=== PATIENT | male | born 1950 | race Caucasian/White ===

== ENCOUNTER 2022-05-15 10:51 | Emergency (ER) | payer OTHER ==
[~2022-05-15] VITALS: Ht 175.3 cm; Wt 83.9 kg
[~2022-05-15 10:51] MED LIST: ALBU90OI INH; ATEN25 PO; ATOR40TA PO; Aspirin EC81 MG PO; Fish Oil Conc1000 MG PO; MELA3 PO; POTA10T PO; Prozac20 MG PO; Sleep Aid25 M1 PO; TRAZ50 PO; ZESTRIL40 M1 PO
[2022-05-15] MEDS ORDERED: HYDR1TAB94 PO (11:07)
[2022-05-15] MEDS ORDERED: ANECREAM515 GM TOP (11:10)
== END 2022-05-15 11:06 | disposition home or self-care (01) ==
LOC: ER 10:51
DX: M25.511 Pain in right shoulder (principal); G89.29 Other chronic pain; Z79.82 Long term (current) use of aspirin; Z79.899 Other long term (current) drug therapy; Z87.891 Personal history of nicotine dependence
CPT/HCPCS: 99283

== ENCOUNTER 2022-08-12 06:18 | Day surgery (SDC) | payer OTHER ==
[~2022-08-12] VITALS: Ht 175.3 cm; Wt 75.7 kg
[~2022-08-12 06:18] MED LIST changes: +ANECREAM515 GM TOP; +HYDR1TAB94 PO
[2022-08-12] MEDS ORDERED: FENO145 (06:50)
--- NOTE | 2022-08-12 07:29 | NUR ---
08/12/22 0729 Berenice Yu TIME OUT AND SITE CHECK DONE WITH DR RAMIREZ FOR [facility]
--- NOTE | 2022-08-12 08:12 | NUR ---
08/12/22 0812 Naty Hutchins 1MG OF EPI (1MG/ML) ADDED TO THE FIRST BAG OF LR FOR IRRIGATION AT THE [facility] PER ORDER. 0.05MG OF EPI DILUTED WITH 10ML OF NORMAL SALINE VERIFIED BY 2 RN'S TO MAKE EPI 1:200,000 FOR INJECTION AT [facility] BY DR BROWNE.
--- NOTE | 2022-08-12 09:39 | NUR ---
08/12/22 0939 TETE YARRBOUGH PT VOMITING. WILL GIVE REGLAN ORDERED BY DR. RAMIREZ. DR. RAMIREZ WAS CALLED BACK INTO PACU TO ASSIST WITH PT ANXITY, TRYING TO PULL OFF O2 MASK EARLIER. HE GAVE PT MED TO REVERSE MUSCLE SPASMS.
[2022-08-12 09:57] VITALS: BP 120/79
--- NOTE | 2022-08-12 09:58 | NUR ---
08/12/22 0957 TETE YARBROUGH ASSISTING WITH CARE
== END 2022-08-12 10:55 | disposition home or self-care (01) ==
LOC: ORSCSDS 06:18
PROVIDERS: Orthopaedic Surgery
PROC: 0LM14ZZ Reattachment of Right Shoulder Tendon, Percutaneous Endoscopic Approach (ICD-10-PCS; principal; 2022-08-12 07:30)
PROC: 0RNJ4ZZ Release Right Shoulder Joint, Percutaneous Endoscopic Approach (ICD-10-PCS; principal; 2022-08-12 07:30)
DX: M75.121 Complete rotator cuff tear or rupture of right shoulder, not specified as traumatic (principal); I10 Essential (primary) hypertension; I25.10 Atherosclerotic heart disease of native coronary artery without angina pectoris; F17.210 Nicotine dependence, cigarettes, uncomplicated; Z79.899 Other long term (current) drug therapy; Z79.82 Long term (current) use of aspirin; E78.00 Pure hypercholesterolemia, unspecified
CPT/HCPCS: C1713; J0171; J0690; J1100; J1885; J2250; J2405; J2704; J2710; J2765; J3010; J7120

== ENCOUNTER 2023-01-23 11:13 | Emergency (ER) | payer OTHER ==
[~2023-01-23] VITALS: Ht 177.8 cm; Wt 72.6 kg
[~2023-01-23 11:13] MED LIST changes: +CENTRUM SILVER1 EAC2 PO; +CLOP75 PO; +FENO145; +METO25 PO
[2023-01-23 13:21] VITALS: BP 139/83
== END 2023-01-23 13:20 | disposition home or self-care (01) ==
LOC: ER 11:13
DX: R51.9 Headache, unspecified (principal); I25.10 Atherosclerotic heart disease of native coronary artery without angina pectoris; I25.2 Old myocardial infarction; Z79.899 Other long term (current) drug therapy; Z79.82 Long term (current) use of aspirin
CPT/HCPCS: 70450

== ENCOUNTER → 2023-06-03 | Outpatient (CLI) | payer OTHER ==
[2023-06-03 09:14] LABS: Source, Urine Clean Catch
[2023-06-03 12:49] LABS: Appearance, Urine Clear (Clear); Bilirubin, Urine Neg (Neg); Blood, Urine 1+ (Neg); Color, Urine Yellow (P-Yellow); Glucose Qualitative, Urine Neg (Neg); Ketones, Urine Neg (Neg); Leukocyte Esterase, Urine 2+ (Neg); Nitrite, Urine Pos (Neg); Protein, Urine 4+ (Neg); Urobilinogen, Urine NORM (Normal)
[2023-06-03 13:01] LABS: Bacteria Many /hpf; Squamous Epithelial Cells Few /hpf (Few); White Blood Cells, Urine 50-100 /hpf (0-5)
== END | disposition home or self-care (01) ==
LOC: LAB SHORT 09:12
PROVIDERS: Student in an Organized Health Care Education/Training Program
DX: N18.32 Chronic kidney disease, stage 3b (principal)
CPT/HCPCS: 81001

== ENCOUNTER → 2023-06-06 | Outpatient (CLI) | payer OTHER ==
[2023-06-06 14:48] LABS: Source, Urine Voided
[2023-06-06 15:37] LABS: Appearance, Urine Clear (Clear); Bilirubin, Urine Neg (Neg); Blood, Urine 1+ (Neg); Color, Urine Yellow (P-Yellow); Glucose Qualitative, Urine Neg (Neg); Ketones, Urine Neg (Neg); Leukocyte Esterase, Urine Neg (Neg); Nitrite, Urine Neg (Neg); Protein, Urine 4+ (Neg); Urobilinogen, Urine NORM (Normal)
[2023-06-06 16:10] LABS: Protein, Urine Random 688.3 mg/dL (0.0-11.9); Protein/Creat Ratio, Ur Random 5.2
[2023-06-06 17:19] LABS: Bacteria Many /hpf; Squamous Epithelial Cells Rare /hpf (Few)
== END | disposition home or self-care (01) ==
LOC: LAB 14:17 → LAB SHORT 14:17
PROVIDERS: Hospitalist
DX: I12.9 Hypertensive chronic kidney disease with stage 1 through stage 4 chronic kidney disease, or unspecified chronic kidney disease (principal); N18.32 Chronic kidney disease, stage 3b; R80.9 Proteinuria, unspecified
CPT/HCPCS: 81001; 82570; 84156; 87077; 87086; 87186

== ENCOUNTER 2023-08-11 12:05 | Emergency (ER) | payer OTHER ==
[~2023-08-11] VITALS: Ht 175.3 cm; Wt 77.6 kg
[2023-08-11 12:10] VITALS: BP 179/107
[2023-08-11] MEDS ORDERED: Ketorolac Tromethamine 15mg Vial IV ONE (12:20)
[2023-08-11 13:01] LABS: BASOPHILS ABSOLUTE AUTO 0.06 K/mm3 (0.00-0.23); BASOPHILS PERCENT AUTO 1 % (0-2); EOSINOPHILS ABSOLUTE AUTO 0.41 K/mm3 (0.00-0.68); EOSINOPHILS PERCENT AUTO 4 % (0-6); Hematocrit 49.2 % (37.0-53.0); Hemoglobin 16.7 g/dL (13.5-17.5); IMMATURE GRAN ABSOLUTE AUTO 0.03 K/mm3 (0.00-0.10); IMMATURE GRAN PERCENT AUTO 0 % (0-1); LYMPHOCYTES ABSOLUTE AUTO 3.15 K/mm3 (0.84-5.20); LYMPHOCYTES PERCENT AUTO 32 % (21-46); MONOCYTES ABSOLUTE AUTO 0.86 K/mm3 (0.16-1.47); MONOCYTES PERCENT AUTO 9 % (4-13); Mean Corpuscular HGB 30.6 pg (26.0-34.0); Mean Corpuscular HGB Conc 33.9 g/dL (31.5-36.5); Mean Corpuscular Volume 90 fL (80-100); Mean Platelet Volume 10.5 fL (9.1-12.4); NEUTROPHILS ABSOLUTE AUTO 5.25 K/mm3 (1.96-9.15); NEUTROPHILS PERCENT AUTO 54 % (41-73); Platelet Count 208 K/mm3 (150-400); RDW Coefficient Variation 13.2 % (11.7-14.2); RDW Standard Deviation 43.4 fL (35.1-46.3); Red Blood Cell Count 5.46 M/mm3 (4.30-5.90); White Blood Cell Count 9.76 K/mm3 (4.00-11.30)
[2023-08-11 13:23] LABS: Albumin, Blood 3.4 g/dL (3.4-5.0); Albumin/Globulin Ratio 0.9 (0.8-1.8); Bilirubin, Total 0.5 mg/dL (0.1-1.0); Bun/Creatinine Ratio 9.2 (12.0-20.0); Calcium, Blood 9.1 mg/dL (8.5-10.1); Creatinine, Blood 1.53 mg/dL (0.60-1.20); Globulin, Blood 3.8 g/dL (2.2-4.0); Total Protein, Blood 7.2 g/dL (6.4-8.2)
[2023-08-11] MEDS ORDERED: HYDROcodone 5-APAP 325 TAB PO ONE (16:25)
[2023-08-11] MEDS ORDERED: PredniSONE 20 MG Tab PO ONE (16:25)
[2023-08-11] MEDS ORDERED: Prednisone20 MG PO (16:26)
== END 2023-08-11 16:40 | disposition home or self-care (01) ==
LOC: ER 12:05
PROVIDERS: Student in an Organized Health Care Education/Training Program
DX: M54.42 Lumbago with sciatica, left side (principal); G62.9 Polyneuropathy, unspecified; Z79.899 Other long term (current) drug therapy; Z79.82 Long term (current) use of aspirin; I25.2 Old myocardial infarction; I10 Essential (primary) hypertension; E78.5 Hyperlipidemia, unspecified; G43.909 Migraine, unspecified, not intractable, without status migrainosus; Z87.891 Personal history of nicotine dependence
CPT/HCPCS: 72170; 80053; 85025; 96374; 99283-25; A9270; J1885; J7512

== ENCOUNTER 2023-08-24 13:05 | Emergency (ER) | payer OTHER ==
[~2023-08-24] VITALS: Ht 175.3 cm; Wt 78.0 kg
[~2023-08-24 13:05] MED LIST changes: +Prednisone20 MG PO
[2023-08-24 14:59] LABS: BASOPHILS ABSOLUTE AUTO 0.05 K/mm3 (0.00-0.23); BASOPHILS PERCENT AUTO 0 % (0-2); EOSINOPHILS ABSOLUTE AUTO 0.23 K/mm3 (0.00-0.68); EOSINOPHILS PERCENT AUTO 1 % (0-6); Hematocrit 48.7 % (37.0-53.0); Hemoglobin 16.4 g/dL (13.5-17.5); IMMATURE GRAN ABSOLUTE AUTO 0.23 K/mm3 (0.00-0.10); IMMATURE GRAN PERCENT AUTO 1 % (0-1); LYMPHOCYTES ABSOLUTE AUTO 4.59 K/mm3 (0.84-5.20); LYMPHOCYTES PERCENT AUTO 26 % (21-46); MONOCYTES ABSOLUTE AUTO 1.82 K/mm3 (0.16-1.47); MONOCYTES PERCENT AUTO 10 % (4-13); Mean Corpuscular HGB 31.2 pg (26.0-34.0); Mean Corpuscular HGB Conc 33.7 g/dL (31.5-36.5); Mean Corpuscular Volume 93 fL (80-100); Mean Platelet Volume 10.7 fL (9.1-12.4); NEUTROPHILS ABSOLUTE AUTO 11.07 K/mm3 (1.96-9.15); NEUTROPHILS PERCENT AUTO 62 % (41-73); Platelet Count 197 K/mm3 (150-400); RDW Coefficient Variation 14.3 % (11.7-14.2); RDW Standard Deviation 47.8 fL (35.1-46.3); Red Blood Cell Count 5.25 M/mm3 (4.30-5.90); White Blood Cell Count 17.99 K/mm3 (4.00-11.30)
[2023-08-24 15:11] LABS: Albumin, Blood 2.9 g/dL (3.4-5.0); Albumin/Globulin Ratio 0.9 (0.8-1.8); Bilirubin, Total 0.3 mg/dL (0.1-1.0); Bun/Creatinine Ratio 17.9 (12.0-20.0); Calcium, Blood 8.4 mg/dL (8.5-10.1); Creatinine, Blood 1.51 mg/dL (0.60-1.20); Globulin, Blood 3.1 g/dL (2.2-4.0); Potassium, Blood 3.7 mmol/L (3.5-5.5)
[2023-08-24] MEDS ORDERED: METPRE4DP PO (16:21)
[2023-08-24 16:38] VITALS: BP 150/93
== END 2023-08-24 16:49 | disposition home or self-care (01) ==
LOC: ER 13:05
PROVIDERS: Emergency Medicine
DX: M54.16 Radiculopathy, lumbar region (principal); I49.3 Ventricular premature depolarization; I10 Essential (primary) hypertension; E78.5 Hyperlipidemia, unspecified; I25.2 Old myocardial infarction; Z87.891 Personal history of nicotine dependence; Z79.82 Long term (current) use of aspirin; Z79.52 Long term (current) use of systemic steroids; Z79.899 Other long term (current) drug therapy; Z79.02 Long term (current) use of antithrombotics/antiplatelets
CPT/HCPCS: 80053; 84484; 85025; 93005; 93010; 93242; 99284-25